=== PATIENT | female | born 2000 | race Caucasian/White ===

== ENCOUNTER 2020-09-27 09:35 | Outpatient (CLI) | payer OTHER ==
[2020-09-27] MEDS ORDERED: Gadobenate Dimeglumine 529 MG/1 ML (20ML VIAL) ONE (10:06)
[2020-09-27] MEDS ORDERED: EPINEPHrine 1 MG/ML AMP ONE (10:06)
[2020-09-27] MEDS ORDERED: Iopamidol 300 61% 50 ML VIAL FS ONE (10:06)
[2020-09-27] MEDS ORDERED: Lidocaine 1% PF 10 ML AMP ONE (10:06)
== END 2020-09-27 09:36 | disposition home or self-care (01) ==
LOC: RAD 09:35
PROVIDERS: ATTEND Orthopaedic Surgery
DX: M25.851 Other specified joint disorders, right hip (principal)
CPT/HCPCS: 27093; A9577; J0171; J2001; Q9967